=== PATIENT | female | born 1965 | race Two or more races ===

== ENCOUNTER 2016-08-22 13:06 | Emergency (ER) | payer OTHER ==
--- NOTE | 2016-08-22 13:18 | EDPHY ---
H & P Stated Complaint: burning cp midsternal x1 week HPI/ROS: CHIEF COMPLAINT: Chest pain HISTORY OF PRESENT ILLNESS: The patient is a Thai-speaking 51 y/o female arriving with her family complaining of chest pain and headache for the last week. She has a history of hypertension, hyperthyroidism, meningioma, Vogt's Palsy, and anemia. She had an extensive work up in June 2014 for chest and neck pain and was ultimately diagnosed with a left meningioma and neurosurgery recommended a follow up MRI within 3 months, which she has not done. She is concerned her blood pressure is high and her heart rate feels rapid. Her symptoms wax and wane and are sometimes associated with a noise in her ears ( which is not currently present). She describes her chest pain as "burning" in quality. It is mid substernal. Her pain improves slightly after resting, is not exacerbated by movement or exertion. There is no radiation of the pain. She denies associated shortness of breath. She has not had nausea. She took Motrin last night without obvious change in symptoms. The pain does not feel like heartburn to her. She also describes some chronic perceived facial weakness and intermittent paresthesias. 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 She denies recent illness, recent trauma, abdominal pain, dyspnea, fever, or urinary complaints. She is compliant with her medications. History obtained via Thai sorter laundry articles. REVIEW OF SYSTEMS: A ten point review of systems was performed and is negative with the exception of the items mentioned in the HPI. Source: City Auditor Exam Limitations: Language barrier (City Auditor used for all patient interactions.) - Personal History LMP (Females 10-55): 1-7 Days Ago Current Tetanus/Diphtheria Vaccine: No - Medical/Surgical History PMH: PMH includes: 1. Hypertension 2. Hypothyroidism 3. Anemia 4. Arthritis 5. Cholecystectomy 6. Vogt's Palsy Father had a stroke, of heart attack in old age. Prior medical records reviewed including admission 06/27/14 for neck and chest pain. Hx Asthma: No Hx Chronic Respiratory Disease: No Hx Diabetes: No Hx Cardiac Disease: No Hx Renal Disease: No Hx Cirrhosis: No Hx Alcoholism: No Hx HIV/AIDS: No Hx Splenectomy or Spleen Trauma: No Other PMH: htn, anemia, hypothyroid - Social History Smoking Status: Never smoked Additional Social History: Nonsmoker. Works at [employer]. Family at bedside. PCP: [facility] - Rebecca Olson - Physical Exam Exam: General Appearance: Alert. Vital signs reviewed. Blood pressure 148/72. Eyes: Pupils equal and round, no conjunctival injection, no discharge. Anicteric. ENT, Mouth: Mucous membranes are moist, no oropharyngeal erythema or edema. Neck: No lymphadenopathy, supple. Trachea midline. Thorax: No tenderness to palpation. No crepitus. Respiratory: Lungs are clear to auscultation; no wheezes, rales, or rhonchi. Cardiovascular: Regular rate and rhythm; no murmur, rub, or gallop. Gastrointestinal: Abdomen is soft and nontender, no masses or organomegaly, bowel sounds normal. Skin: Warm and dry, no rashes on exposed skin, normal color. Back: Nontender to palpation over the thoracolumbar spine. No CVAT. Extremities: No lower extremity edema, no calf tenderness or swelling. Neurological: Alert and oriented. Moving all four extremities easily and equally. Flattening of right nasolabial fold and slight asymmetry of her smile. Cranial nerves 2-12 otherwise intact. Visual acuity not tested. Strength is 5/5 throughout. Sensation intact to light touch over all 4 extremities. Psychiatric: Normal affect. Constitutional: Initial Vital Signs Temperature (C) 36.9 C 08/22/16 13:10 Heart Rate 84 08/22/16 13:10 Respiratory Rate 16 08/22/16 13:10 Blood Pressure 148/72 H 08/22/16 13:10 O2 Sat (%) 96 08/22/16 13:10 O2 Delivery Mode Room Air Allergies/Adverse Reactions: No Known Allergies Allergy (Verified 08/22/16 13:09) Home Medications: Medication Instructions Recorded Ferrous Sulfate [Ferrous Sulf 325 325 mg PO BID 02/24/13 MG (*)] Hydrochlorothiazide [HCTZ (*)] 25 mg PO DAILY 02/24/13 Cyclobenzaprine [Flexeril 10 MG 10 mg PO TID PRN 11/28/13 (*)] Hydrochlorothiazide [HCTZ (*)] 25 mg PO DAILY 11/28/13 Lisinopril [Zestril 20 mg (*)] 20 mg PO DAILY 11/28/13 Acetaminophen/Pamabrom [Midol 1 tab PO Q6 PRN 06/26/14 Caplet] Citalopram [CeleXA 20 MG] 20 mg PO DAILY 06/26/14 Levothyroxine [Synthroid 125 mcg 125 mcg PO DAILY06 06/26/14 (*)] Lisinopril [Zestril 40 mg (*)] 40 mg PO DAILY #30 tab 06/28/14 Pantoprazole Sodium [Protonix 40mg 40 mg PO DAILY #30 tab 06/28/14 (*)] amLODIPine BESYLATE [Norvasc 2.5 2.5 mg PO DAILY #0 tab 06/28/14 mg (*)] Medical Decision Making - Diagnostics EKG Interpretation: 12 lead EKG is interpreted in Trace master View by emergency department physician. Imaging Results: Two-view chest x-ray reviewed by me in PACs. No acute pulmonary disease. Imaging: I viewed and interpreted images myself ED Course/Re-evaluation: IV established. Labs drawn including CBC, CHEM, troponin. Patient placed on veneer cutter and chest x-ray ordered. 324mg PO Aspirin administered. The 12 lead EKG was interpreted by myself. Sinus rhythm rate 88. See hard copy and/or "tracemaster" electronic copy for interpretation. She is concerned about chest discomfort that she has been experiencing constantly for at least the last week. This discomfort waxes and wanes but seems to be present almost all of the time. She does not think that this is heartburn, has not tried any antacids. Her gallbladder has been removed. She does not have abdominal pain at the time of my exam. She is also concerned about her blood pressure. She is compliant with her blood pressure medications which are lisinopril and hydrochlorothiazide. Her blood pressures in the emergency department have ranged from a systolic of 131-148 over a diastolic of 72-80. She has not been significantly hypertensive while here. She was also concerned that she might have a rapid heart rate. Her heart rate has been normal throughout her stay here. EKG does not show any signs of ischemia. Her troponin is normal. I think it highly unlikely that this is an acute coronary syndrome, given the fact that she has been symptomatic for at least a week. She has also had headache. She received aspirin in the emergency department. She had significant improvement in all of her symptoms--both her headache and her chest discomfort. She was greatly relieved to hear that her laboratory workup and chest x-ray and EKG were all essentially normal. She is noted to be mildly anemic, a chronic problem for her. We talked about adding an antacid to her medications but she does not think that this is an acid problem. I am recommending follow up with her PCP. We discussed the danger signs that should prompt her to be seen again immediately. She has a normal neurologic exam. I do not suspect a headache that is due to a serious or life-threatening problem. She is not complaining of neck pain. She has not had trauma. No fever or signs of infection, such as meningismus. 1657: Reassessed patient and discussed work up. Her chest x-ray, EKG, and lab work are essentially normal. She says she feels much better. I've asked her to follow up with her PCP tomorrow if possible. Strict return precautions given. Differential Diagnosis: I considered a differential diagnosis of Chest pain including but not limited to myocardial ischemia, pulmonary embolus, chest wall pain, pleural inflammation and pulmonary infectious causes. I considered a differential diagnosis of Headache including but not limited to subarachnoid hemorrhage, migraine headache, tension headache and infectious causes such as meningitis, pharyngitis and sinusitis. - Data Points Laboratory Results: Laboratory Results 08/22/16 13:23 08/22/16 13:23 Medications Given: Discontinued Medications Aspirin (Aspirin) 324 mg PO EDNOW ONE Stop: 08/22/16 13:40 Last Admin: 08/22/16 13:49 Dose: 324 mg Departure - Departure Disposition: Home, Routine, Self-Care Clinical Impression: Chest pain Qualifiers: Chest pain type: other chest pain Qualified Code(s): R07.89 - Other chest pain ; R07.8 - Other chest pain Condition: Good Instructions: Chest Pain (ED) Additional Instructions: Follow up with your primary care provider in the next 2-3 days. Return to the ED for any worsening of condition including fainting, shortness of breath, fever , or severe chest pain. Isidoro radha laith de seguimiento con orourke proveedor de cuidado primario si los sintomas no mejoran en los siguientes 2-3 acharya. Regrese al Departamento de Emergencias si orourke condicion empeora, si tiene desmayos, falta de respiracion, fiebre o dolor katie del pecho. Referrals: [facility] [Other] - As per Instructions Stand Alone Forms: Work Excuse Report Scribed for: Sarah Haines Report Scribed by: Janny Arce Date of Report: 08/22/16 Time of Report: 13:40 Physician Review and Approval Statement: 08/22/16 13:18 Portions of this note were transcribed by the medical stenographer. I, Dr. Sarah Haines, personally performed the history, physical exam, and medical decision- making; and confirmed the accuracy of the information in the transcribed note.
--- NOTE | 2016-08-22 13:25 | CPEKG ---
Heart Rate: 88 RR Interval: 682 P-R Interval: 144 QRSD Interval: 82 QT Interval: 360 QTC Interval: 436 P [place]: 50 QRS [place]: 61 T Wave [place]: 38 EKG Severity - NORMAL ECG - EKG Impression: SINUS RHYTHM Electronically Signed By: Sarah Haines 22-Aug-2016 19:45:46
[2016-08-22] MEDS ORDERED: ASPIRIN 81 MG CHEWABLE TAB PO ONE (13:39)
[2016-08-22 13:47] LABS: % IMMATURE GRANULYOCYTES 0.3 % (0.0-1.1); ABSOLUTE IMMATURE GRANULOCYTES 0.02 10^3/uL (0.00-0.10); ADD DIFF? NO; ADD MORPH? NO; ADD SCAN? NO; ATYPICAL LYMPHOCYTE FLAG 0 (0-99); FRAGMENT RBC FLAG 20 (0-99); HEMATOCRIT 34.6 % (38.0-47.0); HEMOGLOBIN 10.8 g/dL (12.6-16.3); LEFT SHIFT FLG 0 (0-99); LIPEMIA HEMOLYSIS FLAG 80 (0-99); MEAN CELL HEMOGLOBIN 24.3 pg (27.9-34.1); MEAN CELL HEMOGLOBIN CONCENTR. 31.2 g/dL (32.4-36.7); MEAN CELL VOLUME 77.9 fL (81.5-99.8); MEAN PLATELET VOLUME 12.5 fL (8.7-11.7); PLATELET CLUMPS FLAG 10 (0-99); PLATELET COUNT 255 10^3/uL (150-400); RED BLOOD CELL COUNT 4.44 10^6/uL (4.18-5.33); RED CELL DISTRIBUTION WIDTH 17.2 % (11.5-15.2)
[2016-08-22 14:01] LABS: CALCIUM 9.8 mg/dL (8.5-10.4); CARBON DIOXIDE 24 mEq/l (22-31); CHLORIDE 105 mEq/L (97-110); CREATININE 0.7 mg/dL (0.6-1.0); GLOMERULAR FILTRATION RATE > 60; GLUCOSE 102 mg/dL (70-100); SODIUM 142 mEq/L (134-144)
[2016-08-22 14:12] LABS: TROPONIN I < 0.012 ng/mL (0-0.034)
[2016-08-22 14:40] VITALS: O2SAT 94
[2016-08-22 14:56] LABS: ANION GAP 13 mEq/L (8-16); POTASSIUM 3.9 mEq/L (3.5-5.2)
[2016-08-22 17:17] VITALS: BP 139/78; PULSE 76; RESP 17; TEMP 98.2
== END 2016-08-22 17:27 | disposition home or self-care (01) ==
DX: R07.89 Other chest pain (principal); I10 Essential (primary) hypertension